=== PATIENT | female | born 1985 | race Caucasian/White ===

== ENCOUNTER 2018-12-29 15:51 | Inpatient (IN) | payer OTHER ==
[2018-12-29 16:24] VITALS: BMI 31.0
--- NOTE | 2018-12-29 16:53 | PDOC.LDHP ---
Labor and Delivery H&P HPI: Patient of Dr Molina CC: Here with irregular CTX 33 yo at 39 weeks 1 day here with irreg CTX. Was 4-5cm last week in office , no VB, no LOF, CTX come and go since this AM. Good FM. No other issues. Review of Systems: complete ROS performed and as per HPI Current gestational age (weeks): 39 (1 day) Grav: 2 Para: 1 OB History Details: x 1 Current complications: none Abnormal US findings: No Current medications: pre-angela vitamins Previous surgical history: none Allergies/Adverse Reactions: Allergies Allergy/AdvReac Type Severity Reaction Status Date / Time No Known Allergies Allergy Verified 12/29/18 16:17 - Physical Exam Vital signs reviewed and normal: yes (Tmax 99.1 BP 126/88 18 90s) General: NAD Heart: RRR Lungs: CTAB Abdomen: gravid Extremeties: no edema FHT: category 1 [place] contractions every: Q2-5 and irritability noted - Vaginal Exam cm dilated: 4 (to 5) Effacement: 50% Station: -2 - Assessment Latent phase of labor at full term, GBS neg. - Plan Plan: observation in L&D (Recheck in 2 hours, patient may ambulate afor now if desired)
[2018-12-29] MEDS ORDERED: Lidocaine 1% (PF) 30 ML VIAL SC PRN (19:37)
[2018-12-29] MEDS ORDERED: HYDROcodone/Acetaminophen 5/325 mg Tablet PO PRN ×2 (19:37)
[2018-12-29] MEDS ORDERED: Butorphanol Tartrate 1 MG/ML VIAL SLOW IVP PRN (19:37)
[2018-12-29] MEDS ORDERED: NS / Oxytocin 40 units/1000ml 1,000 ML IV PRN (19:37)
[2018-12-29] MEDS ORDERED: Ibuprofen 800 MG TAB PO PRN (19:37)
[2018-12-29] MEDS ORDERED: Ondansetron PF 4 MG/2 ML Vial IVP PRN ×2 (19:37→20:59)
[2018-12-29] MEDS ORDERED: Promethazine HCl 25 MG/ML VIAL IM PRN ×2 (19:37→20:59)
--- NOTE | 2018-12-29 19:38 | PDOC.EVN ---
Event Note - Event Note Event Note: Recheck: and regular CTX. Will admit. I have notified Dr salgado
[2018-12-29] MEDS: Lactated Ringer's 1,000 ML IV SCH ×2 (20:02→21:35)
[2018-12-29 20:20] LABS: Hemoglobin 11.3 g/dL (12.0-16.0); Mean Corpuscular HGB CONC 34.5 g/dL (32.0-36.0); Mean Corpuscular Hemoglobin 29.8 pg (27.0-31.0); Mean Corpuscular Volume 86.4 fL (78.0-98.0); Mean Platelet Volume 10.1 fL (7.4-10.4); Platelet Count 149 thou/uL (130-400); RBC Distribution Width 12.1 % (11.5-14.5); Red Blood Cell (RBC) Count 3.79 mill/uL (4.20-5.40); White Blood Cell (WBC) Count 8.6 thou/uL (4.8-10.8)
[2018-12-29] MEDS ORDERED: Fentanyl 4 mcg/Bup 0.1% Cadd 100 ML ONE (20:26)
[2018-12-29] MEDS ORDERED: Bupivacaine 0.5% 10 ML VIAL ONE (20:34)
[2018-12-29] MEDS ORDERED: Fentanyl 100 MCG/2 ML VIAL ONE (20:34)
[2018-12-29] MEDS ORDERED: Bupivacaine 0.25% 10 ML VIAL EPIDURAL ONE (20:58)
[2018-12-29] MEDS ORDERED: Fentanyl 100 MCG/2 ML VIAL I-THECAL ONE (20:58)
[2018-12-29] MEDS ORDERED: diphenhydrAMINE 50 MG/ML VIAL IVP PRN (20:59)
[2018-12-29] MEDS ORDERED: ePHEDrine/0.9% NaCl/PF SYRINGE 50 mg/10 ml SLOW IVP PRN (20:59)
[2018-12-29] MEDS ORDERED: Lactated Ringer's 500 ML IV PRN (20:59)
[2018-12-29] MEDS ORDERED: Naloxone HCl 0.4 mg/ml Vial IVP PRN ×2 (20:59)
[2018-12-29] MEDS ORDERED: Acetaminophen 325 MG TAB PO PRN (20:59)
[2018-12-29] MEDS ORDERED: Fentanyl 4 mcg/Bupivacaine 0.1% Cassette 100 ML EPIDURAL SCH (21:00)
[2018-12-29] MEDS ORDERED: Bupivacaine/Epinephrine 0.25% 30 ML VIAL ONE (21:00)
[2018-12-29] MEDS ORDERED: Communication Order-Pharmacy FS SCH (21:00)
--- NOTE | 2018-12-29 21:28 | PDOC.EVN ---
Event Note - Event Note Event Note: Level Vial Inside [facility] Note AROM Asked by Dr Molina to AEROM. AROM discussed with the patient and IUPC reviewed. IUPC placed after uncomplicated AROM. Fluid= clear, moderate amount, no malodor CX= 6/80/-1 No FHT decels noted No VB
[2018-12-29] MEDS ORDERED: NS w/ Oxytocin 10 units 500 ML ONE (22:50)
[2018-12-29 23:18] LABS: Syphilis Antibody Nonreactive (Nonreactive); Syphilis Antibody Index 0.07 S/CO (<1.00 Non-Reactive)
[2018-12-29 23:39] LABS: HBSAg Index 0.25 S/CO (0-0.99); HIV (1/2) Antibody/Antigen Non-Reactive (NonReactive); HIV 1/2 INDEX 0.11 S/CO (<1.00); Hep B Surf Ag Non-Reactive S/CO (NonReactive)
[2018-12-30] MEDS ORDERED: Benzocaine-Menthol 82.5 ML CAN TOP PRN (00:54)
[2018-12-30] MEDS ORDERED: HYDROcodone/Acetaminophen 5/325 mg Tablet PO PRN ×2 (00:54)
[2018-12-30] MEDS ORDERED: Preparation H Ointment 28 GM TUBE PR PRN (00:54)
[2018-12-30] MEDS ORDERED: diphenhydrAMINE 25 MG CAP PO PRN (00:54)
[2018-12-30] MEDS ORDERED: Bisacodyl 10 MG SUPP PR PRN (00:54)
[2018-12-30] MEDS ORDERED: Milk Of Magnesia 30 ML UDCUP PO PRN (00:54)
[2018-12-30] MEDS ORDERED: Ondansetron PF 4 MG/2 ML Vial IVP PRN (00:54)
[2018-12-30] MEDS ORDERED: Lanolin Ointment 7 GM TUBE TOP PRN (00:54)
--- NOTE | 2018-12-30 00:54 | PDOC.OPDEL ---
OB Operative/Delivery Note Delivery Dr/Surgeon: Jesse Pre-Delivery Diagnosis: active labor Procedure/Post Delivery Dx: spontaneous vaginal delivery Weeks gestation: 39 Anesthesia: epidural - Findings A Sex: female - 1 min: 8 - 5 min: 9 - Additional Findings/Plan Placenta delivered: spontaneous Repaired Obstetrical Laceration: 2nd degree Compilations/Other Findings: loose nuchal reduced at perineum Post delivery plan: routine recovery
[2018-12-30] MEDS ORDERED: NS / Oxytocin 40 units/1000ml 1,000 ML IV SCH (01:00)
[2018-12-30] MEDS: Ibuprofen 800 MG TAB PO SCH ×3 (06:02→21:43)
[2018-12-30] MEDS: Ferrous Sulfate 325 MG TAB PO SCH ×2 (08:45→18:32)
[2018-12-30] MEDS ORDERED: Adacel (T-DAP) 0.5 ML SYRINGE IM ONE (09:00)
[2018-12-30] MEDS: Docusate Calcium (SURFAK) 240 MG CAP PO SCH ×2 (11:07→21:43)
[2018-12-30] MEDS: Prenatal Vitamin 1 TAB PO SCH (11:08)
--- NOTE | 2018-12-30 11:23 | PDOC.PP ---
Post Progress Note Post Day #: 0 Subjective: doing well, breast feeding PO intake tolerated: yes Flatus: yes Ambulation: yes Vital Signs (12 hours) Temp Pulse Resp BP Pulse Ox 12/30/18 07:00 98.3 F 71 16 110/64 95 12/30/18 04:20 98.9 F 68 18 102/62 12/30/18 03:20 98.1 F 72 18 113/58 L 98 Weight Weight 204 lb - Physical Examination General: NAD Respiratory: non-labored breathing Fundus firm & at: at umbilicus Skin: no rash Psychiatric: A&Ox3, normal affect Result Diagrams: 12/29/18 20:10 Additional Labs: Post Labs Blood Type O POSITIVE 12/29/18 20:10 Hep Bs Antigen Non-Reactive S/CO (NonReactive) 12/29/18 20:10 (1) Vaginal delivery Code(s): O80 - ENCOUNTER FOR FULL-TERM UNCOMPLICATED DELIVERY Status: Acute (2) Active labor at term Code(s): VIK8231 - Status: Acute - Assessment/Plan PPD0 doing well, likely DC tomorrow.
[2018-12-30] MEDS: Lactated Ringer's 1,000 ML IV SCH ×2 (18:32→21:41)
[2018-12-31] MEDS: Ibuprofen 800 MG TAB PO SCH (06:15)
[2018-12-31] MEDS: Lactated Ringer's 1,000 ML IV SCH (06:53)
--- NOTE | 2018-12-31 07:31 | DIS ---
DATE OF ADMISSION: 12/29/2018 DATE OF DISCHARGE: 12/31/2018 ADMITTING DIAGNOSES: 1. Intrauterine at 39 weeks. 2. Active labor. DISCHARGE DIAGNOSIS: Intrauterine at 39, status post term spontaneous vaginal delivery. PROCEDURE: Normal delivery. CONSULTATIONS: None. HOSPITAL COURSE: The patient is a 33-year-old, G2, now P2 female, who was admitted for labor on 12/29/2018, and subsequently had an uncomplicated term spontaneous vaginal delivery. For complete details, please refer to the delivery note. The patient was transferred then to for routine care. She is now day #1. She reports this morning that she is having decreased lochia and good pain control and is tolerating p.o. and voiding on her own and has interest in being discharged. PHYSICAL EXAMINATION: VITAL SIGNS: This morning, blood pressure 121/53, temperature 97.8, pulse is 72, respiratory rate of 16, saturating 98% on room air. GENERAL: She appears to be in no acute distress. She is alert, oriented, cooperative, and pleasant to interact with. HEENT: Head is normocephalic, atraumatic. : Fundus is firm at the umbilicus, -1. EXTREMITIES: Nontender and nonedematous. The patient will be discharged to home with ibuprofen for p.r.n. pain control. She has instructions to follow up with Dr. Molina in 6 weeks for routine visit and to seek medical attention sooner if she experiences fever, increasing pain, or bleeding. Job ID: [id number]
[2018-12-31] MEDS: Ferrous Sulfate 325 MG TAB PO SCH (08:27)
[2018-12-31] MEDS: Docusate Calcium (SURFAK) 240 MG CAP PO SCH (08:32)
[2018-12-31] MEDS: Prenatal Vitamin 1 TAB PO SCH (08:32)
[2018-12-31 09:03] VITALS: BP 118/57; TEMP 98.8
== END 2018-12-31 12:36 | disposition home or self-care (01) | DRG 807 ==
LOC: L&D/OP 15:51 → L&D 20:20 → 3SE 12-30 03:13
PROVIDERS: ADMIT Obstetrics & Gynecology; ATTEND Obstetrics & Gynecology
PROC: 10H07YZ Insertion of Other Device into Products of Conception, Via Natural or Artificial Opening (ICD-10-PCS; principal; 2018-12-29)
PROC: 4A1H7CZ Monitoring of Products of Conception, Cardiac Rate, Via Natural or Artificial Opening (ICD-10-PCS; 2018-12-29)
PROC: 10E0XZZ Delivery of Products of Conception, External Approach (ICD-10-PCS; 2018-12-30)
PROC: 10907ZC Drainage of Amniotic Fluid, Therapeutic from Products of Conception, Via Natural or Artificial Opening (ICD-10-PCS; 2018-12-30)
DX: O69.81X0 Labor and delivery complicated by cord around neck, without compression, not applicable or unspecified (principal); Z37.0 Single live birth; O70.1 Second degree perineal laceration during delivery; Z3A.39 39 weeks gestation of pregnancy
CPT/HCPCS: 36415; 51702; 85027; 86780; 86850; 86900; 86901; 87340; 87389; 99285; J2001; J2590; J3010; J3490